=== PATIENT | male | born 1995 ===

== ENCOUNTER 2019-03-25 01:00 | Emergency (ER) | payer OTHER ==
[2019-03-25] MEDS ORDERED: Oxymetazoline HCl 0.05% (30 ML BOT) ONE (01:19)
== END 2019-03-25 02:01 ==
LOC: ERS 01:00 → EEVIPCON 01:00 → ERS 02:01
DX: J06.9 Acute upper respiratory infection, unspecified (principal); J45.909 Unspecified asthma, uncomplicated; F32.9 Major depressive disorder, single episode, unspecified; Z79.899 Other long term (current) drug therapy
CPT/HCPCS: 99284